=== PATIENT | female | born 1960 | race Caucasian/White ===

== ENCOUNTER 2021-09-02 16:47 | Emergency (ER) | payer BC, SELFPAY ==
[2021-09-02 16:58] VITALS: BP 130/66; PULSE 100; RESP 22; TEMP 36.8; O2SAT 100; BMI 19.6
--- NOTE | 2021-09-02 17:09 | CRLHL7_ITS ---
For Patients: As a result of the Century Cures Act, medical imaging exams and procedure reports are released immediately into your electronic medical record. You may view this report before your referring provider. If you have questions, please contact your health care provider. INDICATION: Fall. Pain. FINDINGS: Three views of the left ankle were obtained. There is no acute fracture or dislocation. There is a spur off the distal fibula laterally. There is a posterior calcaneal spur. IMPRESSION: No acute bone abnormality. Dictated by Shawn Marin MD @ 09/02/2021 6:04:06 PM (Electronically Signed)
--- NOTE | 2021-09-02 17:09 | CRLHL7_ITS ---
For Patients: As a result of the Century Cures Act, medical imaging exams and procedure reports are released immediately into your electronic medical record. You may view this report before your referring provider. If you have questions, please contact your health care provider. INDICATION: Fall. Pain. FINDINGS: Three views of the left foot were obtained. There is no acute fracture or dislocation. There is a small posterior calcaneal spur. IMPRESSION: No acute bone abnormality. Dictated by Shawn Marin MD @ 09/02/2021 6:05:31 PM (Electronically Signed)
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
--- NOTE | 2021-09-02 17:37 | ED.NURSE ---
wounds were cleansed with saline and dressed with bacitracin, telfa and coban. superficial abrasions. multiple
== END 2021-09-02 18:50 | disposition home or self-care (01) ==
PROVIDERS: Emergency Provider Family Medicine
DX: S90.32XA Contusion of left foot, initial encounter (principal); V18.0XXA Pedal cycle driver injured in noncollision transport accident in nontraffic accident, initial encounter
CPT/HCPCS: 73610; 73630; 99283